=== PATIENT | female | born 1960 | race Two or more races ===

== ENCOUNTER 2022-04-17 00:12 | Inpatient (IN) | payer OTHER ==
[~2022-04-17] VITALS: Ht 157.5 cm; Wt 79.2 kg
[2022-04-17] MEDS ORDERED: MIDODRINE HCL 5 MG TABLET PO ONE (00:30)
[2022-04-17] MEDS ORDERED: MIDO5TAB29 PO (00:35)
[2022-04-17] MEDS ORDERED: FLUDROCORTISONE ACETATE 0.1 MG TABLET PO ONE ×2 (00:45→11:45)
[2022-04-17] MEDS ORDERED: ONDANSETRON HCL 4 MG/2 ML VIAL IVP ONE (01:30)
[2022-04-17 01:41] LABS: CALCIUM, TOTAL 9.4 mg/dL (8.8-10.5); CREATININE 10.86 mg/dL (0.60-1.30); POTASSIUM 3.3 mmol/L (3.5-5.1)
[2022-04-17 01:52] LABS: ALBUMIN 1.6 g/dL (3.4-5.0); BILIRUBIN,TOTAL 0.5 mg/dL (0.1-1.0); TOTAL PROTEIN, SERUM 6.3 g/dL (6.4-8.2)
[2022-04-17 02:00] LABS: BASOPHILS % (AUTO) 0.2 % (0.0-2.0); EOSINOPHILS % (AUTO) 0.3 % (1.0-6.0); HEMATOCRIT 36.8 % (36-46); HEMOGLOBIN 11.4 g/dL (12.0-16.0); LYMPHOCYTES # (AUTO) 1.3 K/uL (1.0-4.8); LYMPHOCYTES % (AUTO) 5.7 % (22.0-44.0); MEAN CORPUSCULAR HEMOGLOBIN 28.3 pg (26.0-34.0); MEAN CORPUSCULAR VOLUME 91 fL (80-100); MONOCYTES # (AUTO) 0.4 K/uL (0.1-1.0); NEUTROPHILS # (AUTO) 20.5 K/uL (1.8-7.7); PLATELET COUNT (AUTO) 241 K/uL (150-450); RED BLOOD CELL COUNT(AUTO) 4.02 MIL/uL (4.00-5.20); RED CELL DISTRIBUTION WIDTH 16.6 % (11.5-14.5)
[2022-04-17 02:07] LABS: NEUTROPHILS % (AUTO) 91.8 % (40.0-70.0)
[2022-04-17 02:18] LABS: COVID AG,FIA SOURCE NASOPHARYNGEAL
[2022-04-17] MEDS ORDERED: PIPERACILLIN/TAZO 3.375 GM/D5W 50 ML IV ONE (02:30)
[2022-04-17] MEDS ORDERED: VANCOMYCIN 1GM/WATER(PEG/NADA) 200 ML IV ONE (02:30)
[2022-04-17] MEDS ORDERED: ALBUMIN HUMAN 5%-12.5GM/250ML 250 ML IV ONE (03:00)
[2022-04-17 03:15] LABS: INR 1.4 (0.9-1.1); PROTHROMBIN TIME 14.2 SEC (9.4-11.6)
[2022-04-17 03:38] LABS: LACTIC ACID 6.9 mmol/L (0.4-2.0)
[2022-04-17] MEDS ORDERED: SODIUM CHLORIDE 0.9% 1,400 ML IV ONE (04:45)
[2022-04-17 05:45] VITALS: BP 96/59
[2022-04-17] MEDS: PHENYLEPHRINE 200 MG/D5%-WATER 250 ML IV PRN ×2 (06:35→17:56)
[2022-04-17] MEDS ORDERED: MORPHINE SULFATE 2 MG/ML SYRINGE IVP PRN (07:00)
[2022-04-17] MEDS ORDERED: BISACODYL 10 MG RECTAL RECTAL SUPPOSITORY PR PRN (07:00)
[2022-04-17] MEDS ORDERED: MAGNESIUM HYDROXIDE SUSPENSION 30 ML UDCUP PO PRN (07:00)
[2022-04-17] MEDS ORDERED: NOREPINEPHRINE 8 MG/D5%-WATER 250 ML IV PRN (07:00)
[2022-04-17] MEDS ORDERED: ZOLPIDEM TARTRATE 5 MG TABLET PO PRN (07:00)
[2022-04-17] MEDS ORDERED: HYDROCODONE/ACETAMINOPHEN 5-325 MG TABLET PO PRN (07:00)
[2022-04-17] MEDS ORDERED: ACETAMINOPHEN 325 MG TABLET PO PRN (07:00)
[2022-04-17 08:00] VITALS: BP 73/49
[2022-04-17] MEDS ORDERED: PIPERACILLIN SODIUM/TAZOBACTAM 2.25 GM in DEXTROSE 5%-WATER 50 ML IV SCH (09:00)
[2022-04-17] MEDS ORDERED: MIDODRINE HCL 5 MG TABLET PO SCH (09:00)
[2022-04-17] MEDS ORDERED: SODIUM CHLORIDE 0.9% 500 ML IV ONE (09:23)
[2022-04-17] MEDS: DOCUSATE SODIUM 100 MG CAPSULE PO SCH ×2 (09:41→21:00)
[2022-04-17] MEDS: HEPARIN SODIUM,PORCINE 5,000 UNITS/ML VIAL SQ SCH ×2 (09:41→16:37)
[2022-04-17] MEDS: PANTOPRAZOLE SODIUM 40 MG DR TABLET PO SCH (09:42)
[2022-04-17] MEDS ORDERED: DEXTROSE 50%-WATER 25 GM/50 ML SYRINGE IVP PRN (09:45)
[2022-04-17] MEDS ORDERED: SODIUM CHLORIDE 0.9% 250 ML IV ONE (10:11)
[2022-04-17] MEDS ORDERED: POTASSIUM CHL 20 MEQ/0.9% NS 1,000 ML IV ONE (10:45)
[2022-04-17] MEDS ORDERED: POTASSIUM CHLORIDE 20 MEQ ER TABLET PO ONE (11:15)
[2022-04-17] MEDS ORDERED: VASOPRESSIN 40 UNITS in DEXTROSE 5%-WATER 98 ML IV PRN (12:30)
[2022-04-17 13:40] LABS: ABG CARBOXYHEMOGLOBIN 1.2 % (0.0-1.5); ABG METHEMOGLOBIN 0.3 % (0.0-1.5); ABG OXYGEN CONTENT 16.5 mL/dL (15.0-23.0); ABG OXYGEN SATURATION 98.5 % (95.0-98.0); ABG PCO2 21 mmHg (35-45); ABG PH 7.278 (7.35-7.450); ABG TOTAL HEMOGLOBIN 11.9 G/dL (12.0-18.0); O2 DEVICE,BLOOD GAS CANNULA (ROOM AIR); PO2, ARTERIAL BG 144.1 mmHg (79.0-87.0); SITE, BLOOD GAS RT BRACHIAL; SOURCE, BLOOD GAS ARTERIAL; TEMPERATURE, FAHRENHEIT, BG 98.6 FAHREN (96.0-98.6)
[2022-04-17] MEDS ORDERED: RINGERS LACTATED IV SCH ×2 (14:00)
[2022-04-17] MEDS ORDERED: FentaNYL CITRATE PF 100 MCG/2 ML VIAL ONE (14:48)
[2022-04-17] MEDS ORDERED: FentaNYL CITRATE PF 100 MCG/2 ML VIAL IVP ONE (15:45)
[2022-04-17 16:00] VITALS: BP 175/49
[2022-04-17] MEDS ORDERED: [UNRECOGNIZED DRUG - OTHER] IP PRN (16:30)
[2022-04-17] MEDS ORDERED: CEFTAZIDIME PENTAHYDRATE IP PRN (16:30)
[2022-04-17] MEDS ORDERED: VANCOMYCIN HCL IP PRN (16:30)
[2022-04-17] MEDS: PIPERACILLIN SODIUM/TAZOBACTAM 2.25 GM in DEXTROSE 5%-WATER 50 ML IV SCH (16:36)
[2022-04-17] MEDS: NYSTATIN 500,000 UNITS/5 ML SUSPENSION UDCUP PO SCH ×2 (16:37→21:00)
[2022-04-17] MEDS: ALBUMIN HUMAN 25%-12.5GM/50ML 50 ML IV SCH ×2 (16:37→22:49)
[2022-04-17] MEDS: MIDODRINE HCL 5 MG TABLET PO SCH (16:37)
[2022-04-17 17:32] LABS: SPECIMENTYPE,BODY FLUID PERITONEAL
[2022-04-17 17:46] LABS: GLUCOSE,POINT OF CARE 313 MG/DL (70-110)
[2022-04-17] MEDS ORDERED: PHENYLEPHRINE 200 MG/D5%-WATER 250 ML IV PRN (18:00)
[2022-04-17 18:02] VITALS: BP 137/72
[2022-04-17 18:25] LABS: APPEARANCE,SPUN,BODY FLUID CLEAR (CLEAR); APPEARANCE,UNSPUN,BODY FLUID CLEAR (CLEAR); COLOR,BODY FLUID LT YELLOW (LT YELLOW); TOTAL VOLUME,BODY FLUID 65 mL; WBC, BODY FLUID 4 /cu. mm.
[2022-04-17 18:26] LABS: BASOPHILS,BODY FLUID 0 %; EOSINOPHILS,BF (ANAL) 0 %; LYMPHOCYTES,BODY FLUID 71 %; MONOCYTES,BODY FLUID 0 %; NEUTROPHILS,BODY FLUID 14 %; OTHER CELLS,BODY FLUID MESOTHELIALS
[2022-04-17 20:00] VITALS: BP 136/33
[2022-04-17] MEDS: ONDANSETRON HCL 4 MG/2 ML VIAL IVP PRN (21:15)
[2022-04-17] MEDS: INSULIN LISPRO 100 UNITS/ML SQ PRN (21:25)
[2022-04-18] VITALS: BP 158/42
[2022-04-18] MEDS: HEPARIN SODIUM,PORCINE 5,000 UNITS/ML VIAL SQ SCH ×3 (00:16→16:13)
[2022-04-18] MEDS: PIPERACILLIN SODIUM/TAZOBACTAM 2.25 GM in DEXTROSE 5%-WATER 50 ML IV SCH ×2 (00:16→08:24)
[2022-04-18] MEDS: MIDODRINE HCL 5 MG TABLET PO SCH ×3 (00:17→16:13)
[2022-04-18 00:45] LABS: GLUCOSE,POINT OF CARE 337 MG/DL (70-110)
[2022-04-18 04:00] VITALS: BP 130/67
[2022-04-18] MEDS: ALBUMIN HUMAN 25%-12.5GM/50ML 50 ML IV SCH ×2 (05:51→15:00)
[2022-04-18] MEDS: INSULIN LISPRO 100 UNITS/ML SQ PRN (05:53)
[2022-04-18 06:01] LABS: GLUCOSE,POINT OF CARE 259 MG/DL (70-110)
[2022-04-18 06:15] LABS: HEMATOCRIT 25.9 % (36-46); HEMOGLOBIN 8.3 g/dL (12.0-16.0); MEAN CORPUSCULAR HEMOGLOBIN 28.7 pg (26.0-34.0); MEAN CORPUSCULAR HGB CONC 31.8 G/dL (31.0-37.0); MEAN CORPUSCULAR VOLUME 90 fL (80-100); PLATELET COUNT (AUTO) 178 K/uL (150-450); RED BLOOD CELL COUNT(AUTO) 2.87 MIL/uL (4.00-5.20)
[2022-04-18 06:30] LABS: CALCIUM, TOTAL 7.7 mg/dL (8.8-10.5); CREATININE 7.41 mg/dL (0.60-1.30); MAGNESIUM 1.1 mg/dL (1.80-2.40)
[2022-04-18 06:54] LABS: POTASSIUM 2.2 mmol/L (3.5-5.1)
[2022-04-18] MEDS ORDERED: POTASSIUM CHLORIDE 10% 40 MEQ/30 ML LIQUID UDCUP PO ONE (07:15)
[2022-04-18 08:00] VITALS: BP 126/38
[2022-04-18 08:02] LABS: BAND NEUTROPHILS % (MANUAL) 14 % (0-5); LYMPHOCYTES % (MANUAL) 6 % (22-44); MONOCYTES % (MANUAL) 1 % (2-9); SEGMENTED NEUTROPHILS % 79 % (40-70)
[2022-04-18] MEDS: POTASSIUM CHL 10 MEQ/WATER 50 ML IV SCH ×8 (08:22→20:10)
[2022-04-18] MEDS: DOCUSATE SODIUM 100 MG CAPSULE PO SCH ×3 (08:22→19:58)
[2022-04-18] MEDS: PANTOPRAZOLE SODIUM 40 MG DR TABLET PO SCH (08:23)
[2022-04-18] MEDS: NYSTATIN 500,000 UNITS/5 ML SUSPENSION UDCUP PO SCH ×3 (08:23→19:58)
[2022-04-18] MEDS ORDERED: FLUDROCORTISONE ACETATE 0.1 MG TABLET PO SCH (09:00)
[2022-04-18] MEDS: ONDANSETRON HCL 4 MG/2 ML VIAL IVP PRN (09:15)
[2022-04-18] MEDS ORDERED: MAGNESIUM SULFATE 2 GM/WATER 50 ML IV ONE (10:15)
[2022-04-18 12:00] VITALS: BP 102/34
[2022-04-18] MEDS ORDERED: PERFLUTREN PROTEIN-A MICROSPHERES 0.22 MG/ML 3 ML VIAL IVP ONE (12:45)
[2022-04-18 13:36] LABS: GLUCOSE,POINT OF CARE 127 MG/DL (70-110)
[2022-04-18 16:00] VITALS: BP 105/29
[2022-04-18 20:31] LABS: GLUCOSE,POINT OF CARE 165 MG/DL (70-110)
== END 2022-04-18 21:55 | disposition short-term general hospital (02) | DRG 871 ==
LOC: EMS 00:14 → ICU 04:30
PROVIDERS: ADMIT Internal Medicine; ATTEND Internal Medicine
PROC: 04HY32Z Insertion of Monitoring Device into Lower Artery, Percutaneous Approach (ICD-10-PCS; principal; 2022-04-17)
PROC: 06HY33Z Insertion of Infusion Device into Lower Vein, Percutaneous Approach (ICD-10-PCS; 2022-04-17)
PROC: B54BZZA Ultrasonography of Right Lower Extremity Veins, Guidance (ICD-10-PCS; 2022-04-17)
PROC: 3E1M39Z Irrigation of Peritoneal Cavity using Dialysate, Percutaneous Approach (ICD-10-PCS; 2022-04-17)
DX: A41.9 Sepsis, unspecified organism (principal); E43 Unspecified severe protein-calorie malnutrition; G93.41 Metabolic encephalopathy; N18.6 End stage renal disease; R65.21 Severe sepsis with septic shock; K65.9 Peritonitis, unspecified; I13.2 Hypertensive heart and chronic kidney disease with heart failure and with stage 5 chronic kidney disease, or end stage renal disease; E87.1 Hypo-osmolality and hyponatremia; E87.20 Acidosis, unspecified; N17.9 Acute kidney failure, unspecified; D63.1 Anemia in chronic kidney disease; E11.22 Type 2 diabetes mellitus with diabetic chronic kidney disease; E87.6 Hypokalemia; Z99.2 Dependence on renal dialysis; E11.40 Type 2 diabetes mellitus with diabetic neuropathy, unspecified; E11.51 Type 2 diabetes mellitus with diabetic peripheral angiopathy without gangrene; E83.42 Hypomagnesemia; E86.0 Dehydration; E86.1 Hypovolemia; I25.10 Atherosclerotic heart disease of native coronary artery without angina pectoris; I50.9 Heart failure, unspecified; K52.9 Noninfective gastroenteritis and colitis, unspecified; E66.9 Obesity, unspecified; E11.65 Type 2 diabetes mellitus with hyperglycemia; Z20.822 Contact with and (suspected) exposure to COVID-19; R74.01 Elevation of levels of liver transaminase levels; R62.7 Adult failure to thrive; Z79.4 Long term (current) use of insulin; Z86.16 Personal history of COVID-19; Z87.01 Personal history of pneumonia (recurrent); Z74.01 Bed confinement status; Z68.31 Body mass index [BMI] 31.0-31.9, adult; Z79.899 Other long term (current) drug therapy; Z88.8 Allergy status to other drugs, medicaments and biological substances; Z91.14 Patient's other noncompliance with medication regimen
CPT/HCPCS: 36600; 51702; 70450; 71045; 74176; 80048; 80053; 82805; 82962; 83605; 83735; 84100; 84132; 84484; 85025; 85610; 85730; 87040; 87075; 87081; 87205; 89051; 90945; 93005; 93306; 99291; C8924; G0378; J0713; J1644; J2370; J2405; J2543; J3010; J3370; J3475; J3480; J3490; J7040; J7050; J7060; J7120; P9041; P9047; Q9967; 36415-L1; 36415-TC; 87070